=== PATIENT | female | born 1980 | race Caucasian/White ===

== ENCOUNTER 2022-03-07 14:52 | Outpatient (CLI) | payer OTHER | END 2022-03-07 14:53 | disposition EMS.NT | LOC: EMS 14:52 | DX: S41.112A Laceration without foreign body of left upper arm, initial encounter (principal); S41.111A Laceration without foreign body of right upper arm, initial encounter; S81.812A Laceration without foreign body, left lower leg, initial encounter; S81.811A Laceration without foreign body, right lower leg, initial encounter; S31.119A Laceration without foreign body of abdominal wall, unspecified quadrant without penetration into peritoneal cavity, initial encounter; W22.8XXA Striking against or struck by other objects, initial encounter; Y93.11 Activity, swimming; Y92.832 Beach as the place of occurrence of the external cause ==